=== PATIENT | male | born 1960 | race Hispanic/Latino ===

== ENCOUNTER 2018-02-19 10:24 | Outpatient (CLI) | payer OTHER | END 2018-02-19 10:25 | disposition home or self-care (01) | LOC: C.PAT 10:24 | DX: R97.20 Elevated prostate specific antigen [PSA] (principal) ==

== ENCOUNTER 2018-02-20 08:44 | Day surgery (SDC) | payer OTHER ==
[2018-02-19 10:37] VITALS: BMI 25.0
[2018-02-20 09:50] LABS: URINE BACTERIA RARE (<OCC); URINE BILIRUBIN NEGATIVE (NEGATIVE); URINE BLOOD NEGATIVE (NEGATIVE); URINE CALCIUM OXALATE CRYSTALS MOD /hpf (<OCC); URINE CLARITY Hazy (Clear); URINE COLOR Yellow (YELLOW); URINE GLUCOSE (UA) NORMAL (Normal); URINE LEUKOCYTE ESTERASE NEG Leu/uL (Negative); URINE PROTEIN NEGATIVE (NEGATIVE); URINE UROBILINOGEN NORMAL mg/dL (0.2-1.0)
[2018-02-20] MEDS ORDERED: cefTRIAXone 1 gm 1 GM/100 ML BAG IVPB ONE (10:22)
[2018-02-20] MEDS ORDERED: Gentamicin 80 mg in 0.9% NS 160 MG/200 ML BAG IVPB ONE (10:22)
[2018-02-20] MEDS ORDERED: Lidocaine 2% Jelly (Uro-Jet) ONE (10:22)
[2018-02-20] MEDS ORDERED: Midazolam 2 MG/2 ML VIAL ONE (10:26)
[2018-02-20] MEDS ORDERED: Propofol 10 mg/ml Inj (20 ML) ONE (10:27)
[2018-02-20] MEDS ORDERED: Morphine 4 MG/ML VIAL IVP PRN (11:24)
[2018-02-20 12:14] VITALS: RESP 16
[2018-02-20 13:01] VITALS: BP 141/64; PULSE 58; TEMP 97.6; O2SAT 98
--- NOTE | 2018-02-20 15:10 | OP ---
PROCEDURE DATE: 02/20/2018 PREOPERATIVE DIAGNOSIS: Elevated prostate-specific antigen 4.2. POSTOPERATIVE DIAGNOSIS: Elevated prostate-specific antigen 4.2. PROCEDURE: Transrectal ultrasound diagnostic, transrectal ultrasound guidance, and transrectal prostate biopsies. SURGEON: Yakov Almendarez MD DESCRIPTION OF PROCEDURE: The patient confirmed in the holding area that he has not taken any NSAIDs for over a week. His serum calcium was 12.1, but his EKG was good and he is under the care of an tube knitter. After discussion with the head of anesthesia, we felt it was perfectly safe to proceed with the sedation for the procedure. The patient was brought to the operating room. He was given intravenous gentamicin 160 mg and Rocephin 1 g IV piggyback. His rectum was prepped with lidocaine jelly and also Betadine. We now proceeded with transrectal ultrasound for diagnostic purposes. The transducer was introduced into the rectum and a total volume of 56.2 cm3 was obtained. There were no localizing lesions noted. We then used the ultrasound as a guide to perform biopsies. Two biopsies in each of six sextants were obtained and sent to pathology. The transducer was left in place for 5 minutes to promote hemostasis, and upon removal, there was virtually no bleeding noted. Estimated blood loss 5 mL. The patient tolerated the procedure well. He was told in the holding area prior to the procedure that he should take it easy for 1 or 2 days and that in the unlikely event he develops high fever or chills, to call me immediately, and if no immediate response, go right to the emergency room. Yakov Almendarez MD
== END 2018-02-20 12:57 | disposition home or self-care (01) ==
LOC: C.SDS 08:44
PROVIDERS: ATTEND Urology
DX: R97.20 Elevated prostate specific antigen [PSA] (principal)
CPT/HCPCS: 55700; 81001; 87086; 88305; 88342; J0696; J1580

== ENCOUNTER 2018-03-15 08:40 | Outpatient (CLI) | payer OTHER | END 2018-03-15 08:41 | disposition home or self-care (01) | LOC: C.NUCMED 08:40 | DX: E23.1 Drug-induced hypopituitarism (principal); E55.9 Vitamin D deficiency, unspecified ==

== ENCOUNTER 2018-03-18 08:18 | Outpatient (CLI) | payer OTHER | END 2018-03-18 08:19 | disposition home or self-care (01) | LOC: C.USIC 08:18 | DX: E23.1 Drug-induced hypopituitarism (principal); M81.0 Age-related osteoporosis without current pathological fracture ==

== ENCOUNTER 2018-03-31 08:22 | Outpatient (CLI) | payer OTHER | END 2018-03-31 08:23 | disposition home or self-care (01) | LOC: C.MRIC 08:23 | DX: N20.0 Calculus of kidney (principal) ==

== ENCOUNTER 2018-04-15 08:27 | Outpatient (CLI) | payer OTHER | END 2018-04-15 08:28 | disposition home or self-care (01) | LOC: C.LAB 08:27 | DX: E23.1 Drug-induced hypopituitarism (principal) ==